=== PATIENT | male | born 1970 | race Hispanic/Latino ===

== ENCOUNTER 2017-10-17 20:05 | Emergency (ER) | payer OTHER, SELFPAY ==
[2017-10-17] MEDS ORDERED: ACETAMINOPHEN-CODEINE ELIXIR 5 ML UDCUP ONE (21:43)
== END 2017-10-17 21:50 | disposition home or self-care (01) ==
LOC: EDH 20:05
DX: M62.838 Other muscle spasm (principal)
CPT/HCPCS: 71045

== ENCOUNTER 2020-04-05 18:46 | Emergency (ER) | payer BC ==
[2020-04-05] MEDS ORDERED: ALBUTEROL INHALER 90MCG/INH IH ONE (20:40)
== END 2020-04-05 20:55 | disposition home or self-care (01) ==
LOC: EDH 18:46
DX: J01.40 Acute pansinusitis, unspecified (principal); J30.9 Allergic rhinitis, unspecified; R06.2 Wheezing; R03.0 Elevated blood-pressure reading, without diagnosis of hypertension
CPT/HCPCS: 70220

== ENCOUNTER 2022-02-12 19:16 | Emergency (ER) | payer BC ==
[~2022-02-12] VITALS: Ht 165.1 cm; Wt 116.6 kg
[2022-02-12 19:18] VITALS: BP 166/96
== END 2022-02-12 21:11 | disposition home or self-care (01) ==
LOC: EDH 19:16
DX: S22.41XA Multiple fractures of ribs, right side, initial encounter for closed fracture (principal); E78.00 Pure hypercholesterolemia, unspecified; Z88.5 Allergy status to narcotic agent; W18.39XA Other fall on same level, initial encounter; Y93.89 Activity, other specified; Y92.89 Other specified places as the place of occurrence of the external cause; Y99.8 Other external cause status
CPT/HCPCS: 71101